=== PATIENT | male | born 1985 | race Caucasian/White ===

== ENCOUNTER 2018-09-08 09:26 | Emergency (ER) | payer MEDICAID, OTHER ==
[~2018-09-08] VITALS: Ht 154.9 cm; Wt 74.4 kg
[2018-09-08 09:30] VITALS: BP 137/83; PULSE 78; RESP 20; Ht 154.9 cm; Wt 74.4 kg
[2018-09-08] MEDS ORDERED: BENZ-6 PO (09:54)
[2018-09-08] MEDS ORDERED: ALBU18HF INHALATION (09:54)
--- NOTE | 2018-09-08 10:35 | ERD ---
ER Documentation Chief Complaint Chief Complaint Complains of flu like symptoms x 3 days HPI 33-year-old male patient with no significant past medical history presents the ED complaining of a productive cough that started 3 days ago. Patient reports that he has been taking Mucinex, Tylenol without any relief. Denies any fever, chills, nausea, vomiting, diarrhea, neck stiffness. Denies any sick contacts. Denies any chest pain, shortness of breath, wheezing, abdominal pain. ROS All systems reviewed and are negative except as per history of present illness. Medications Home Meds Active Scripts Albuterol Sulfate* (Ventolin HFA*) 18 Gm Hfa.aer.ad, 2 PUFF INHALATION Q4H, #1 INHALER Prov:MALACHI PETTY PA-C 09/08/18 Benzonatate* (Tessalon Perle*) 100 Mg Capsule, 100 MG PO Q8H PRN for COUGH, #20 CAP Prov:MALACHI PETTY PA-C 09/08/18 Allergies Allergies: Coded Allergies: No Known Allergy (Unverified , 09/08/18) PMhx/Soc Medical and Surgical Hx: pt denies Medical Hx, pt denies Surgical Hx History of Surgery: No Anesthesia Reaction: No Hx Neurological Disorder: No Hx Respiratory Disorders: No Hx Cardiac Disorders: No Hx Psychiatric Problems: No Hx Miscellaneous Medical Probl: No Hx Alcohol Use: No Hx Substance Use: No Hx Tobacco Use: No Smoking Status: Never smoker FmHx Family History: No diabetes, No coronary disease Physical Exam Vitals Vital Signs Date Temp Pulse Resp B/P (MAP) Pulse Ox O2 O2 Flow FiO2 Time Delivery Rate 09/08/18 97.6 78 20 137/83 97 09:30 (101) Physical Exam Const: Vvk-ucy-[id number], well-nourished. In no acute distress. Head: Atraumatic, normocephalic Eyes: Normal Conjunctiva without injection. No purulent discharge. PERRL. EOMI ENT: Normal external ear. Ear canal without erythema. Tympanic membrane pearly nguyen without effusion or bulging. Nasal canal clear with normal turbinates. Moist oropharynx without tonsillar exudates. Non-erythematous pharynx. Uvula midline. No drooling. No trismus. Neck: Full range of motion. No meningismus. No cervical lymphadenopathy. Resp: Clear to auscultation bilaterally. No wheezing, rhonchi, rales, or crackles. No accessory muscle use. No retractions. Cardio: Regular rate and rhythm. No murmurs, rubs or gallops. Abd: Soft, non tender, non distended. Normal bowel sounds. No palpable masses. No rebound tenderness. No guarding. Skin: No petechiae or rashes Back: No midline tenderness. No CVA tenderness. Ext: No cyanosis, or edema. Neur: Awake and alert. Psych: Normal Mood and Affect Procedures/MDM 3-year-old male patient with a past medical history of asthma presents to ED complaining of a productive cough that started 3 days ago. Patient is afebrile and nontoxic-appearing. Patient's lungs are clear to auscultation and there is no wheezing noted. Low suspicion for asthma exacerbation. Pulse oximetry is 97%. This patient presents to the ED with symptoms consistent with a viral acute upper respiratory infection. Patient's physical exam include lungs which were clear to auscultation and a normal pulse oximetry. There is a low suspicion for pneumonia, pneumothorax, mononucleosis, pulmonary embolism, epiglottitis, otitis media, otitis externa, viral/strep pharyngitis, sinusitis, myocarditis, pericarditis, endocarditis, peritonsillar abscess, mastoiditis, retropharyngeal abscess, meningitis, sepsis, acute abdomen or other emergent conditions. Fluids, rest, and symptomatic treatment are recommended for the management of patient's symptoms. Diagnosis: Cough Discharge medications: Ventolin, Tessalon Perle Follow up with primary care physician in 1-2 days. Instructed patient to return to the ED sooner for any worsening symptoms. Patient's questions were answered. Patient is hemodynamically stable. Patient understood and agreed with discharge plan. Patient discharged stable. Disclaimer: Inadvertent spelling and grammatical errors are likely due to EHR/dictation software use and do not reflect on the overall quality of patient care. Also, please note that the electronic time recorded on this note does not necessarily reflect the actual time of the patient encounter. Departure Diagnosis: Primary Impression: Cough Condition: Stable Patient Instructions: Uri, Viral, No Abx (Adult) [facility] Usted se dinh hecho un examen mdico de control que le indica que no est en medhat condicin que requiera tratamiento urgente en el Departamento de Emergencia. Un estudio ms profundo y el tratamiento de silva condicin pueden esperar sin ningn riesgo hasta que usted sea atendida/o en el consultorio de silva mdico o medhat clnica. Es responsabilidad suya arreglar medhat leobardo para el seguimiento del rocco. MANEJO DE CONDICIONES NO URGENTES EN EL FUTURO 1) Si usted tiene un mdico de atencin primaria: Usted debera llamar a silva mdico de atencin primaria antes de venir al departamento de emergencia. Despus de las horas de consultorio, silva doctor o silva asociado/a est disponible por telfono. El mdico o enfermero de tyler en el servicio telefnico puede asesorarle por amish medio para atender el problema, o rocco contrario se puede programar medhat leobardo. 2) Si usted no tiene un mdico de atencin primaria: Llame al mdico o clnica de referencia que aparece abajo claudia las horas de consultorio para hacer medhat leobardo para que le vean. CLINICAS: [facility] [phone] [address] [facility] [phone] [address] [facility] [phone] [address] [facility] [place] [phone] [id number] [facility] [place] [id number] [phone] [facility]. [phone] [facility] () Usted se dinh hecho un examen mdico de control que le indica que no est en medhat condicin que requiera tratamiento urgente en el Departamento de Emergencia. Un estudio ms profundo y el tratamiento de silva condicin pueden esperar sin ningn riesgo hasta que usted sea atendida/o en el consultorio de silva mdico o medhat clnica. Es responsabilidad suya arreglar medhat leobardo para el seguimiento del rocco. MANEJO DE CONDICIONES NO URGENTES EN EL FUTURO 1) Si usted tiene un mdico de atencin primaria: Usted debera llamar a silva mdico de atencin primaria antes de venir al departamento de emergencia. Despus de las horas de consultorio, silva doctor o silva asociado/a est disponible por telfono. El mdico o enfermero de tyler en el servicio telefnico puede asesorarle por amish medio para atender el problema, o rocco contrario se puede programar medhat leobardo. 2) Si usted no tiene un mdico de atencin primaria: Llame al mdico o condado institucions de referencia que aparece abajo claudia las horas de consultorio para hacer medhat leobardo para que le vean. SI USTED NO PUEDE PAGAR PARA ANGELA UN MEDICO puede ir a: [facility] [id number] [place] [address] [facility] [address] [place] [address] [facility] [address] [place] [address] [facility] [address] [place] [address] Additional Instructions: Llame al doctor MAANA y sukh medhat LEOBARDO PARA DENTRO DE 2-3 VALDERRAMA.Dgale a la secretaria que nosotros le instruimos hacer esta leobardo.Avise o llame si silva condicin se empeora antes de la leobardo. Regresa aqui si peor o no mejor. MALACHI PETTY PA-C Sep 08, 2018 10:35
== END 2018-09-08 10:16 | disposition home or self-care (01) ==
LOC: FTE 09:26
DX: R05 Cough (principal); J45.909 Unspecified asthma, uncomplicated
CPT/HCPCS: 99283